=== PATIENT | male | born 1955 | race Two or more races ===

== ENCOUNTER 2017-07-30 14:25 | Emergency (ER) | payer OTHER ==
[~2017-07-30] VITALS: Ht 182.9 cm; Wt 95.3 kg
[2017-07-30] MEDS ORDERED: HYDROCHLOROTH12.5 MG (14:41)
[2017-07-30] MEDS ORDERED: AMLODIPINE BESYL5 MG (14:41)
== END 2017-07-30 17:59 | disposition home or self-care (01) ==
LOC: ER 14:25
DX: R55 Syncope and collapse (principal)